=== PATIENT | male | born 1950 | race Two or more races ===

== ENCOUNTER 2018-11-07 06:00 | Emergency (ER) | payer BC ==
[~2018-11-07] VITALS: Ht 167.6 cm; Wt 61.2 kg
[2018-11-07 06:12] VITALS: Ht 167.6 cm; Wt 61.2 kg
[2018-11-07 09:22] VITALS: BP 146/84
== END 2018-11-07 09:23 | disposition home or self-care (01) ==
LOC: ED 06:00
DX: J20.9 Acute bronchitis, unspecified (principal); I10 Essential (primary) hypertension
CPT/HCPCS: J7613; J7620; J7644